=== PATIENT | male | born 1950 | race Caucasian/White ===

== ENCOUNTER → 2016-02-19 | Outpatient (CLI) | payer OTHER, SELFPAY ==
--- NOTE | 2016-02-19 09:48 | CT ---
EXAM DESCRIPTION: CT ABDOMEN PELVIS WITHOUT THEN WITH IV CONTRAST CLINICAL HISTORY: HEMATURIA COMPARISON: CTA abdomen pelvis December 01, 2011 TECHNIQUE: Pre and post contrast CT images of the abdomen and pelvis are obtained. CT scan done according to ALARA (As Low As Reasonably Achievable). FINDINGS: The visualized lung bases show no acute findings. Liver demonstrates several less than 10 mm fluid attenuation cysts. Spleen, pancreas, adrenal glands, and gallbladder are unremarkable. Mild atherosclerotic disease without aneurysmal dilatation of the aorta. Nonobstructing calcification in a lower pole calyx of the right kidney measuring 7 mm is stable from previous. There is a fluid attenuation cyst of the midpole right kidney measuring approximately 8 6.4 x 5.2 cm. Thin curvilinear calcifications are seen within the central aspect of the cyst which may represent 2 adjacent cysts. No solid enhancing component is identified. There are subcentimeter cortical cysts on both kidneys. No ureteral calcification or obstruction is identified. The urinary bladder is contracted and not well evaluated. Prostate remains enlarged with moderate inferior left greater than right prostate calcifications similar to previous exam. The prostate does indent the floor of the urinary bladder. The appendix is difficult to identified. No secondary signs of acute appendicitis are seen. No evidence of small bowel obstruction. The stomach is contracted and not well evaluated. Mild scattered diverticuli of the colon are seen without associated inflammatory changes or fluid collections. Osseous structures show no aggressive bony lesions. Degenerative changes of the spine are seen. IMPRESSION: Nonobstructing right nephrolithiasis is again seen similar to previous exam. Complex cystic lesion of the right kidney is seen within curvilinear calcifications. This represents Bosniac type 2 lesion and continued followup to ensure long-term stability is recommended. Enlarged prostate with moderate left greater than right calcifications has a similar appearance to previous exam. Other findings as described in body of the report. Electronically signed by: Alan Castro MD 02/19/2016 09:46
== END ==
LOC: CT 07:46
PROVIDERS: ATTEND Nurse Practitioner Family
DX: R31.29 Other microscopic hematuria (principal); N20.0 Calculus of kidney; N40.0 Benign prostatic hyperplasia without lower urinary tract symptoms; N28.9 Disorder of kidney and ureter, unspecified

== ENCOUNTER → 2017-02-21 | Outpatient (CLI) | payer OTHER, SELFPAY ==
--- NOTE | 2017-02-21 16:38 | US ---
EXAM DESCRIPTION: Abdomen,Complete CLINICAL HISTORY: 66 years Male, RENAL CYST COMPARISON: None. TECHNIQUE: Standard transabdominal technique with 2-D and Doppler. FINDINGS: Normal gallbladder with no stones or sludge. No wall thickening or pericholecystic fluid. Nontender. Normal caliber of the proximal to distal abdominal aorta and the common bile duct. Minimal atherosclerotic changes in the aorta. No stone seen in the duct. Normal echogenicity of the liver. Mildly enlarged. Normal vascularity. Normal intrahepatic ducts. No ascites. Normal ultrasound of the pancreas. Normal size and echogenicity of the spleen. No fluid in the splenorenal fossa. Left kidney is unremarkable. Right kidney contains a cyst measuring 4.8 x 4.6 x 3.5 cm. Peripheral calcifications. Nonvascular septation. No mural nodules or mural enhancement. IMPRESSION: 1. Almost 5 cm cyst right kidney with partially calcified septation but no vascularity of the septation and no internal soft tissue enhancement. Consider follow-up ultrasound and CT enhancement in one year interval. Normal ultrasound left kidney. 2. Normal ultrasound of the gallbladder ducts and pancreas, spleen. Normal caliber of the common bile duct and abdominal aorta. 3. Normal echoes of the liver and normal intrahepatic ducts. Mild hepatomegaly. No ascites. Electronically signed by: Jair Berry MD 02/21/2017 4:37 PM [employer] NURSE
== END ==
LOC: US 08:03
PROVIDERS: ATTEND Urology
DX: N28.1 Cyst of kidney, acquired (principal)

== ENCOUNTER → 2017-04-12 | Outpatient (CLI) | payer OTHER | LOC: GMAM 10:44 | PROVIDERS: ATTEND Family Medicine | DX: Z12.5 Encounter for screening for malignant neoplasm of prostate (principal) ==

== ENCOUNTER → 2018-04-05 | Outpatient (CLI) | payer MEDICARE | LOC: GMAM 17:54 | PROVIDERS: ATTEND Family Medicine | DX: M79.675 Pain in left toe(s) (principal) ==

== ENCOUNTER → 2018-04-07 | Outpatient (CLI) | payer MEDICARE ==
--- NOTE | 2018-04-09 13:44 | US ---
EXAM DESCRIPTION: Extremity,Lower LT Arteries: Ultrasound. CLINICAL HISTORY: PVD COMPARISON: None. TECHNIQUE: Doppler evaluation of the left lower extremity arterial flow waveforms and velocities. FINDINGS: Arterial waveforms in the left lower extremity are triphasic from the left common femoral artery through the left dorsalis pedis artery. The peroneal artery is biphasic. Comments: Good velocities throughout the left lower extremity. IMPRESSION: Doppler evaluation of the left lower extremity arterial systems showing no evidence of significant atherosclerotic disease. Electronically signed by: Jair Berry MD 04/09/2018 1:41 PM [employer]
== END ==
LOC: US 09:54
PROVIDERS: ATTEND Family Medicine
DX: I73.9 Peripheral vascular disease, unspecified (principal)

== ENCOUNTER → 2018-04-10 | Outpatient (CLI) | payer MEDICARE | LOC: GMAM 16:59 | PROVIDERS: ATTEND Family Medicine | DX: M79.675 Pain in left toe(s) (principal) ==

== ENCOUNTER → 2018-04-18 | Outpatient (CLI) | payer MEDICARE ==
--- NOTE | 2018-04-18 16:17 | US ---
EXAM DESCRIPTION: Renal: Ultrasound. CLINICAL HISTORY: 67 years Male RT CALCIFIED CYST-ABNL CT COMPARISON: Abdominal ultrasound 02/21/2017. TECHNIQUE: Transcutaneous scanning: Two-dimensional and Doppler modes. FINDINGS: Right kidney measures 11.9 x 6.3 x 6.5 cm; mid-renal cortical thickness 10 mm. . Increased echogenicity of the cortex. No hydronephrosis No echogenic stones. Again noted is mostly anechoic cyst in the right kidney with circumscribed microlobulated borders and internal echoes. Dimensions are 4.2 x 4.2 x 3.1 cm. No enhancement of the septation or internal contents of the cyst. Otherwise smooth contour of the kidney with no perinephric fluid. Normal vascularity. Proximal ureter not visualized. Left kidney measures number cm; mid-renal cortical thickness normal.. Small cyst measures 10 x 8 x 7 mm. Second cyst measures 6 x 6 x 5 mm. Intermediate echogenicity of the cortex. No hydronephrosis. No echogenic stones. Smooth contour of the kidney with no perinephric fluid. Normal vascularity.. Proximal ureter not visualized. Urinary bladder was visualized. Bladder volume 66.4 mL. Ureteral jet in the bladder seen bilaterally by Doppler. Post void volume not measured. Prostate gland 3.5 x 2.9 cm sagittal plane and 3 cm transverse plane. Abdominal aorta: Normal caliber from the proximal segment of the distal bifurcation. IMPRESSION: 1. 4.2 cm cyst with irregular margins, internal echoes, and septations is stable in the right kidney. No abnormal vascularity. Thinning of the cortex and increased cortical echogenicity stable since the prior study. Otherwise unremarkable. 2. Small cysts in the left kidney with normal size. Normal cortical thickness but increased echogenicity. Otherwise unremarkable. 3. Urinary bladder identified and bilateral ureteral jets seen by Doppler. Normal caliber of the abdominal aorta. Electronically signed by: Jair Berry MD 04/18/2018 4:14 PM [employer]
== END ==
LOC: US 09:27
PROVIDERS: ATTEND Urology
DX: N28.1 Cyst of kidney, acquired (principal)

== ENCOUNTER → 2018-05-15 | Outpatient (CLI) | payer MEDICARE | LOC: GMAM 11:53 | PROVIDERS: ATTEND Family Medicine | DX: Z12.5 Encounter for screening for malignant neoplasm of prostate (principal) ==

== ENCOUNTER → 2019-02-16 | Outpatient (CLI) | payer MEDICARE ==
--- NOTE | 2019-02-18 15:46 | US ---
EXAM DESCRIPTION: Extremity,Lower LT Arteries: Ultrasound. CLINICAL HISTORY: PAIN IN LEFT LEG COMPARISON: None. TECHNIQUE: Doppler evaluation of the bilateral lower extremity arterial flow waveforms and velocities. FINDINGS: Arterial waveforms in the left lower extremity are all multiphasic. . Comments: Slight elevation of velocity in the deep femoral artery but otherwise unremarkable. IMPRESSION: Doppler ultrasound of the left lower extremity arterial systems showing no evidence of significant atherosclerotic occlusive disease. Electronically signed by: Jair Berry MD 02/18/2019 3:45 PM [facility]
== END ==
LOC: US 09:38
PROVIDERS: ATTEND Family Medicine
DX: M79.605 Pain in left leg (principal)

== ENCOUNTER → 2019-07-18 | Outpatient (CLI) | payer MEDICARE | LOC: GMAM 11:55 | PROVIDERS: ATTEND Family Medicine | DX: Z12.5 Encounter for screening for malignant neoplasm of prostate (principal) ==

== ENCOUNTER → 2020-03-10 | Outpatient (CLI) | payer MEDICARE | LOC: GMAM 16:47 | PROVIDERS: ATTEND Family Medicine | DX: R10.84 Generalized abdominal pain (principal) ==